=== PATIENT | female | born 1995 | race Caucasian/White ===

== ENCOUNTER 2018-12-17 04:54 | Emergency (ER) | payer MEDICAID, OTHER ==
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
--- NOTE | 2018-12-17 06:00 | RADIOLOGY REPORT (SQ) ---
CLINICAL HISTORY: head injury, LOC, ETOH COMPARISON: None. TECHNIQUE: CT CERVICAL SPINE WITHOUT IV CONTRAST on 12/17/2018 5:27 AM CDT This exam was performed according to our departmental dose-optimization program, which includes automated exposure control, adjustment of the mA and/or kV according to patient size and/or use of iterative reconstruction technique. FINDINGS: There is no acute fracture. Alignment is anatomic. Disc spaces are maintained. Vertebral body heights are preserved. Soft tissues are unremarkable. IMPRESSION: No acute fracture or subluxation.
--- NOTE | 2018-12-17 06:00 | RADIOLOGY REPORT (SQ) ---
CLINICAL HISTORY: head injury, LOC, ETOH COMPARISON: None. TECHNIQUE: CT HEAD WITHOUT IV CONTRAST on 12/17/2018 5:27 AM CDT This exam was performed according to our departmental dose-optimization program, which includes automated exposure control, adjustment of the mA and/or kV according to patient size and/or use of iterative reconstruction technique. FINDINGS: There is no acute hemorrhage, mass effect or midline shift. Dillon-white differentiation is preserved. There is no hydrocephalus. There is no significant volume loss for age. The calvarium is intact. Orbits and globes are unremarkable. The paranasal sinuses are clear. Mastoid air cells are clear. IMPRESSION: No acute intracranial findings.
[2018-12-17 06:13] VITALS: BP 121/67
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
== END 2018-12-17 07:10 | disposition home or self-care (01) ==
LOC: ER 04:54
DX: S09.90XA Unspecified injury of head, initial encounter (principal); S16.1XXA Strain of muscle, fascia and tendon at neck level, initial encounter; V86.09XA Driver of other special all-terrain or other off-road motor vehicle injured in traffic accident, initial encounter
CPT/HCPCS: 99283; 70450; 72125; L0120